=== PATIENT | male | born 1950 | race Caucasian/White ===

== ENCOUNTER 2021-06-14 05:35 | Outpatient (CLI) | payer MEDICARE ==
[~2021-06-14] VITALS: Ht 175.3 cm; Wt 135.5 kg
[2021-06-15] MEDS ORDERED: MULT-593 PO (14:32)
[2021-06-15] MEDS ORDERED: MV-M1TAB20 PO (14:32)
[2021-06-15] MEDS ORDERED: LISI40TA9 PO (14:32)
[2021-06-15] MEDS ORDERED: OMG1KC PO (14:32)
[2021-06-15] MEDS ORDERED: METO50TA7 PO (14:32)
[2021-06-15] MEDS ORDERED: AMLO2.5T4 PO (14:32)
[2021-06-15] MEDS ORDERED: ASPI-999 PO (14:32)
[2021-06-15] MEDS ORDERED: SAW500CA10 PO (14:32)
== END 2021-06-15 14:34 | disposition home or self-care (01) ==
LOC: PREOP 05:35
PROVIDERS: ATTEND Surgery
DX: Z01.818 Encounter for other preprocedural examination (principal)

== ENCOUNTER 2021-06-21 08:27 | Day surgery (SDC) | payer BC, MEDICARE, OTHER ==
[2021-06-21] VITALS (8 sets, daily range): BP systolic 144–175; BP diastolic 73–87
[~2021-06-21] VITALS: Ht 175 cm; Wt 135.0 kg
[~2021-06-21 08:27] MED LIST: AMLO2.5T4 PO; ASPI-999 PO; LISI40TA9 PO; METO50TA7 PO; MULT-593 PO; MV-M1TAB20 PO; OMG1KC PO; SAW500CA10 PO
[2021-06-21] MEDS ORDERED: LACTATED RINGERS 1,000 ML IV STA (08:32)
[2021-06-21] MEDS ORDERED: LACTATED RINGERS 1,000 ML IV ONE (08:34)
--- NOTE | 2021-06-21 08:54 | Progress Note-Pre Operative ---
Pre-Operative Progress Note H&P Reviewed The H&P was reviewed, patient examined and no changes noted. Time Seen by Provider: 08:53 Date H&P Reviewed: Jun 21, 2021 Time H&P Reviewed: 08:53 Pre-Operative Diagnosis: Hx of polyps MARIANA SALDAÑA DO Jun 21, 2021 08:54
[2021-06-21] MEDS ORDERED: MIDAZOLAM 2 MG/2 ML (VERSED) VIAL ONE (09:14)
[2021-06-21] MEDS ORDERED: PROPOFOL INJECTION 50 ML IV ONE (09:14)
--- NOTE | 2021-06-21 09:53 | Endoscopy Discharge Instruct ---
Endo Procedure/Findings Findings 1.: Polyp 2.: Diverticulosis 3.: Internal Hemorrhoids Discharge Instructions - Activity: You might feel a little sleepy until tomorrow. This is due to the medicine you received to relax you. Until tomorrow, you should: NOT drive a car, operate machinery or power tools. NOT drink any alcoholic beverages. NOT make any important decisions or sign importortant papers. Do not return to work until tomorrow, unless otherwise instructed. Resume previous activities tomorrow. Diet: Start by taking liquids. If you tolerate liquids, advance to solid food. 1.: Colonscopy in 5 years Notify Physician - If you experience excessive bleeding, unusual abdominal pain, fever, or chest pain, contact your doctor immediately. MARIANA SALDAÑA DO Jun 21, 2021 09:53
--- NOTE | 2021-06-21 09:53 | Progress Note-Post Operative ---
Post-Operative Progess Note Surgeon (s)/Merchandise Director (s) Surgeon MARIANA SALDAÑA DO Merchandise Director: LORI LewisII Pre-Operative Diagnosis Hx of polyps Post-Operative Diagnosis polyps diverticula int hemorrhoids Procedure & Operative Findings Date of Procedure 06/21/21 Procedure Performed/Findings Colonoscopy with cold bx PROCEDURE NOTE: After informed consent was obtained, the patient was brought to the endoscopy suite, placed in bed in left lateral decubitus position. He was administered IV sedation by the BENCH REPAIR TECHNICIAN who then monitored his vitals the entire time, heart rate, blood pressure and pulse ox and the scope was inserted, pushed all the way to about 150 cm and pushed all the way to the cecum, took a picture of appen diceal orifice and then slowly withdrew the scope insufflating to look circumferentially at the sin starting in the cecum and up the ascending colon. Found a small polyp in the ascending colon and removed it with a cold biopsy. Up to the hepatic fle xure, then down the transverse colon to the splenic flexure and into the descending colon. Found another small polyp here and did another cold biopsy. Finally down the sigmoid and then into the rectal vault and retroflexed the scope. Took picture of the minimal internal hemorrhoids. Had also noted diverticula in sigmoid and descending colon on the way in; took a picture. The patient tolerated the procedure. He was recovered in endoscopy suite. Anesthesia Type IV sedation by BENCH REPAIR TECHNICIAN Estimated Blood Loss Estimated blood loss (mL): scant Specimens/Packing Specimens Removed asc colon polyp desc colon polyp MARIANA SALDAÑA DO Jun 21, 2021 09:53
--- NOTE | 2021-06-21 10:19 | Anesthesia-General Post-Op ---
MAC Patient Condition Mental Status/LOC: Same as Preop Cardiovascular: Satisfactory Nausea/Vomiting: Absent Respiratory: Satisfactory Pain: Controlled Complications: Absent Post Op Complications Complications None Follow Up Care/Instructions Patient Instructions None needed. Anesthesiology Discharge Order Discharge Order Patient is doing well, no complaints, stable vital signs, no apparent adverse anesthesia problems. No complications reported per nursing. AMIE GR CLINICAL OB Jun 21, 2021 10:19
== END 2021-06-21 10:40 | disposition home or self-care (01) ==
LOC: ENDO 08:27
PROVIDERS: ATTEND Surgery
DX: Z12.11 Encounter for screening for malignant neoplasm of colon (principal); D12.2 Benign neoplasm of ascending colon; D12.4 Benign neoplasm of descending colon; K57.30 Diverticulosis of large intestine without perforation or abscess without bleeding; K64.8 Other hemorrhoids; E66.9 Obesity, unspecified; G89.29 Other chronic pain; M25.561 Pain in right knee; M25.562 Pain in left knee; Z79.02 Long term (current) use of antithrombotics/antiplatelets; Z79.899 Other long term (current) drug therapy; Z68.41 Body mass index [BMI] 40.0-44.9, adult; Z87.891 Personal history of nicotine dependence
CPT/HCPCS: 88305